=== PATIENT | male | born 1990 | race Caucasian/White ===

== ENCOUNTER 2022-02-20 20:31 | Emergency (ER) | payer BC, SELFPAY ==
--- NOTE | ~2022-02-20 | XR_ITS ---
EXAM: XR knee LT 3V DATE: 02/20/2022 21:22 HISTORY: Pt. states standing up and felt a pop in knee. anterior pain . COMPARISON: None available. FINDINGS: Normal mineralization. No fracture or dislocation. Bone fragmentation at the tibial tubero sity. No lytic or blastic lesion. Joint spaces are maintained. No erosion or periosteal change. Soft tissue swelling over the tibial tuberosity. Thickening and edema at the inferior patellar tendon. 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 Reviewed, dictated and finalized at location 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
[2022-02-20 20:33] VITALS: BP 119/62; PULSE 71; RESP 18; TEMP 36.8; O2SAT 98
[2022-02-20] MEDS: IBUPROFEN 400 MG TABLET 800 MG PO (22:43)
--- NOTE | 2022-02-20 23:03 | ED.GENADULT ---
HPI - General Adult General Chief complaint: Extremity Injury, Lower Stated complaint: left knee injury Time Seen by Provider: 02/20/22 22:25 History of Present Illness HPI narrative: This is a 31-year-old male presenting ED with a chief complaint of left knee pain. Patient was playing with his children when he stood up and felt a popping sensation in his left knee. He has significant pain. He has been unable to bear weight on it. Patient feels like the joint is unstable. He denies any sliding or clicking. Patient has not taken anything for pain control. He denies any numbness tingling or weakness the extremity Related Data Home Medications Medication Instructions Recorded Confirmed albuterol sulfate 90 mcg/actuation g inhalation 12/29/21 12/29/21 aerosol inhaler beclomethasone dipropionate 80 g inhalation 12/29/21 12/29/21 mcg/actuation HFA breath activated aerosol (Qvar RediHaler) Allergies Allergy/AdvReac Type Severity Reaction Status Date / Time No Known Allergies Allergy Unknown Verified 02/20/22 20:36 Review of Systems Review of Systems: CONSTITUTIONAL: Denies night sweats. EYES: No eye pain ENT: Denies rhinorrhea CARDIOVASCULAR: Denies palpitations RESPIRATORY: Denies hemoptysis GASTROINTESTINAL: Denies hematemesis GENITOURINARY: Denies hematuria. SKIN: Denies rash MUSCULOSKELETAL: Denies myalgia. NEUROLOGIC: Denies weakness. PSYCHIATRIC: Denies delusions [facility] Family History Family History Father Hypertension Grandparent Diabetes mellitus Hypertension Other Family history of arthritis Social History Social History Smoking status: Never smoker Alcohol intake: never Substance use: never Exam Narrative: APPEARANCE: No apparent distress. Head: atraumatic. EYES: EOMI, NOSE: Atraumatic NECK: Trachea midline RESPIRATORY: No increased rate of breathing CARDIOVASCULAR: RRR, ABDOMINAL: Non-distended MUSCULOSKELETAl: focal exam of the left lower extremity revealed no obvious deformity. 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 He has pain with passive range of motion and limited range of motion from 30 to 90? of flexion. Extensor mechanism is intact. No tenderness over the patellar ligament. Patient is able to wiggle his toes. Sensation light touch is intact. Pulses are +2 in the PT and DP distribution. No tenderness over the LCL or MCL. No anterior/posterior movement of the tibia. NEURO: Alert. Moving 4/4 extremities SKIN:: Warm, dry. Normal color PSYCHIATRIC: Normal affect Course Vital Signs Vital signs: Vital Signs Temperature 98.2 F 02/20/22 20:33 Pulse Rate 71 02/20/22 20:33 Respiratory Rate 18 02/20/22 20:33 Blood Pressure 119/62 02/20/22 20:33 Pulse Oximetry 98 02/20/22 20:33 Oxygen Delivery Room Air 02/20/22 20:33 Temperature 98.2 F 02/20/22 20:33 Pulse Rate 71 02/20/22 20:33 Respiratory Rate 18 02/20/22 20:33 Blood Pressure 119/62 02/20/22 20:33 Pulse Oximetry 98 02/20/22 20:33 Oxygen Delivery Room Air 02/20/22 20:33 Medical Decision Making [facility] Narrative Medical decision making narrative: This is a 31-year-old male presenting ED with knee pain. An x-ray was obtained which showed evidence of previous Hingham Schlatter but no acute osseous injury. Patient is given Motrin and [place] for pain control. He is unable to bear weight. Patient will be placed in a knee immobilizer. He refused crutches as he has those at home. He will be instructed to follow-up with orthopedics in 1 week. He can take Motrin Tylenol Robaxin for pain control. Vital Signs Vital Signs: Vital Signs Temperature 98.2 F 02/20/22 20:33 Pulse Rate 71 02/20/22 20:33 Respiratory Rate 18 02/20/22 20:33 Blood Pressure 119/62 02/20/22 20:33 Pulse Oximetry
[2022-02-20] MEDS: HYDROcodone/acetaminophen (*CRX) 5-325 MG TABLET 1 TAB PO (23:21)
== END 2022-02-20 23:37 | disposition home or self-care (01) ==
PROVIDERS: Emergency Provider Emergency Medicine; PCP Family Medicine
DX: S89.92XA Unspecified injury of left lower leg, initial encounter (principal); X50.9XXA Other and unspecified overexertion or strenuous movements or postures, initial encounter
CPT/HCPCS: 73562; 99283; A9270

== ENCOUNTER 2022-12-23 15:27 | Emergency (ER) | payer BC, SELFPAY ==
[2022-12-23 15:38] VITALS: BP 111/78; PULSE 66; RESP 16; TEMP 37.1; O2SAT 99
--- NOTE | 2022-12-23 15:47 | ED.EAR ---
HPI - Ear Problem General Chief complaint: Ear Stated complaint: EARACHE Time Seen by Provider: 12/23/22 15:47 Source: patient Mode of arrival: ambulatory Limitations: no limitations History of Present Illness HPI Narrative: 31-year-old male presented for complaint of left ear pain and decreased hearing for about 2 days. Endorses a history of swimmer's ear. He currently denies tenderness, ear drainage, dizziness, nausea vomiting, fevers or chills. He used [id number] pain relief drops without improvement. MD Complaint: ear pain Related Data Allergies Allergy/AdvReac Type Severity Reaction Status Date / Time No Known Allergies Allergy Unknown Verified 12/23/22 15:33 Review of Systems Review of Systems: CONSTITUTIONAL: Denies malaise, chills, or fever. EYES: Denies visual changes, redness, or discharge. ENT: Denies rhinorrhea, congestion, sinus pain, and sore throat. Reports ear pain CARDIOVASCULAR: Denies chest pain, palpitations, or edema. RESPIRATORY: Denies cough or dyspnea. GASTROINTESTINAL: Denies abdominal pain, nausea, vomiting, diarrhea SKIN: Denies rash or itching. MUSCULOSKELETAL: Denies myalgia. NEUROLOGIC: Denies headache. All systems reviewed & are unremarkable except as noted in HPI and below PMFSH Past Medical History Medical History (Updated 12/23/22 @ 15:56 by Alina Eduardo APRN) Otitis externa of both ears Family History Family History Father Hypertension Grandparent Diabetes mellitus Hypertension Other Family history of arthritis Social History Social History Smoking status: Never smoker Alcohol intake: never Substance use: never Living arrangements: with family Comments At time of signature, agree with nursing past medical, surgical, social and family history. There is no relevant family history pertinent to the presenting complaint Exam Narrative: GENERAL: Well-appearing, well-nourished, and in no acute distress. HEAD: Normocephalic EYES: PERRLA, conjunctivae clear ENT: Nares clear. Mucous membranes moist. TMs pearly toussaint with normal light reflex bilaterally; Left canal erythematous, mild swelling with purulent drainage; Left tragal tenderness. Oropharynx normal. NECK: Supple. No lymphadenopathy CHEST: Clear to auscultation, breath sounds equal. HEART: Regular rate and rhythm. No murmur heard. SKIN: Warm, dry, no rash. NEURO: Alert and oriented x3. PSYCH: Normal mood and affect Course Course Emergency Course: Patient is aware of diagnosis, understands and agrees to treatment plan. Anticipatory guidance given. Patient agrees to follow-up as directed and is aware of reasons to seek care at the emergency department. Portions of this record may have been created with voice recognition software Level of Care: Express Care Visit Vital Signs Vital signs: Vital Signs Temperature 98.7 F 12/23/22 15:38 Pulse Rate 66 12/23/22 15:38 Respiratory Rate 16 12/23/22 15:38 Blood Pressure 111/78 12/23/22 15:38 Pulse Oximetry 99 12/23/22 15:38 Temperature 98.7 F 12/23/22 15:38 Pulse Rate 66 12/23/22 15:38 Respiratory Rate 16 12/23/22 15:38 Blood Pressure 111/78 12/23/22 15:38 Pulse Oximetry 99 12/23/22 15:38 Reviewed Medical Decision Making MDM Narrative Medical decision making narrative: Discussed physical exam findings consistent with left otitis externa, advised supportive measures and signs/symptoms to go to the ER. Patient is appropriate for outpatient treatment and follow-up. Differential Diagnosis Differential Diagnosis: Coronavirus, strep pharyngitis, allergic rhinitis, upper respiratory tract infection, sinusitis, rhinosinusitis, nasopharyngitis, viral pharyngitis, otitis media, otitis externa, eustachian tube dysfunction, foreign body, cerumen impaction. Vital Signs Vital Signs: Vital Signs
== END 2022-12-23 15:56 | disposition home or self-care (01) ==
PROVIDERS: Emergency Provider Nurse Practitioner Family; PCP Family Medicine
DX: H60.92 Unspecified otitis externa, left ear (principal)
CPT/HCPCS: 99213; G0463